=== PATIENT | male | born 1950 | race Caucasian/White ===

== ENCOUNTER 2019-05-25 20:41 | Inpatient (IN) | payer MEDICARE, OTHER ==
[2019-05-25] MEDS: SOD CHLORIDE 0.9% 500 ML IV (21:10)
[2019-05-25] MEDS: NITROGLYCERIN 2% 1 GM OINT PKT TD (21:10)
[2019-05-25] MEDS: ASPIRIN 325 MG TAB PO (21:10)
[2019-05-25 21:12] LABS: ADD MAN DIFF? NO
[2019-05-25 21:13] LABS: BASOPHILS % 0.3 % (0.0-2.0); EOSINOPHILS # 0.3 10^3/ul (0.0-0.5); EOSINOPHILS % 2.8 % (0.0-7.0); HEMATOCRIT 35.5 % (42.0-52.0); HEMOGLOBIN 11.7 g/dl (14.0-18.0); LYMPHOCYTES % 33.9 % (15.0-51.0); MEAN CORPUSCULAR HEMOGLOBIN 29.9 pg (29.0-33.0); MEAN CORPUSCULAR VOLUME 90.8 fl (82.0-101.0); MEAN PLATELET VOLUME 10.4 fl (7.4-10.4); MONOCYTE # 0.7 10^3/ul (0.3-0.9); NEUTROPHIL # 4.9 10^3/ul (1.6-7.5); NEUTROPHILS % 54.8 % (39.0-77.0); PLATELET COUNT 224 10^3/UL (140-415); RED BLOOD COUNT 3.91 10^6/ul (4.70-6.10); RED CELL DISTRIBUTION WIDTH 12.1 % (11.5-14.5)
[2019-05-25 21:13] LABS: WHITE BLOOD COUNT 8.9 10^3/ul (4.8-10.8)
[2019-05-25] MEDS: morphine 4 MG/ML VIAL IV (21:23)
[2019-05-25] MEDS: ONDANSETRON 4 MG INJ IV (21:23)
[2019-05-25 21:32] LABS: INR 0.91; PROTIME 12.4 Sec (11.9-14.9)
[2019-05-25 21:33] LABS: PARTIAL THROMBOPLASTIN TIME 25.1 Sec (23.0-35.0)
[2019-05-25 21:40] LABS: ALANINE AMINOTRANSFERASE 18 IU/L (13-69); ALBUMIN 3.8 g/dl (3.3-4.9); ALBUMIN/GLOBULIN RATIO 1.22; ALKALINE PHOSPHATASE 46 IU/L (42-121); ANION GAP 6 (5-13); ASPARTATE AMINO TRANSFERASE 24 IU/L (15-46); BILIRUBIN,INDIRECT 0.2 mg/dl (0-1.1); BILIRUBIN,TOTAL 0.2 mg/dl (0.2-1.3); BLOOD UREA NITROGEN 21 mg/dl (7-20); CALCIUM 8.9 mg/dl (8.4-10.2); CARBON DIOXIDE 25 mmol/L (21-31); CHLORIDE 106 mmol/L (97-110); CREATININE 1.27 mg/dl (0.61-1.24); Estimated GFR 57 mL/min (>60); GLUCOSE 184 mg/dl (70-220); POTASSIUM 4.1 mmol/L (3.5-5.1); SODIUM 137 mmol/L (135-144); TOTAL PROTEIN 6.9 g/dl (6.1-8.1)
[2019-05-25 21:52] LABS: TROPONIN-I 0.072 ng/ml (0.000-0.120)
[2019-05-25] MEDS ORDERED: ONDANSETRON 4 MG INJ IV ×2 (22:30→23:00)
[2019-05-25] MEDS ORDERED: ACETAMINOPHEN 325 MG TAB PO (22:30)
[2019-05-25] MEDS ORDERED: NACL 0.9% 3 ML SYG IV (23:00)
[2019-05-25] MEDS ORDERED: DOCUSATE SODIUM 100 MG CAP PO (23:00)
[2019-05-25] MEDS ORDERED: NITROGLYCERIN (SL) 0.4 MG TAB SL (23:00)
[2019-05-25] MEDS ORDERED: BISACODYL (EC) 5 MG TAB PO (23:00)
[2019-05-25] MEDS ORDERED: morphine 2 MG INJ IV (23:00)
[2019-05-26] MEDS: SALINE 0.65% 45 ML NAS SPRAY NASAL (03:00)
[2019-05-26 03:21] LABS: ADD MAN DIFF? NO
[2019-05-26 03:25] LABS: BASOPHILS % 0.5 % (0.0-2.0); EOSINOPHILS # 0.3 10^3/ul (0.0-0.5); EOSINOPHILS % 3.9 % (0.0-7.0); HEMATOCRIT 33.8 % (42.0-52.0); HEMOGLOBIN 10.7 g/dl (14.0-18.0); LYMPHOCYTES # 3.7 10^3/ul (0.8-2.9); LYMPHOCYTES % 44.3 % (15.0-51.0); MEAN CORPUSCULAR HEMOGLOBIN 29.2 pg (29.0-33.0); MEAN CORPUSCULAR HGB CONC 31.7 g/dl (32.0-37.0); MEAN CORPUSCULAR VOLUME 92.1 fl (82.0-101.0); MEAN PLATELET VOLUME 10.3 fl (7.4-10.4); MONOCYTE # 0.6 10^3/ul (0.3-0.9); MONOCYTES % 7.5 % (0.0-11.0); NEUTROPHIL # 3.7 10^3/ul (1.6-7.5); NEUTROPHILS % 43.6 % (39.0-77.0); PLATELET COUNT 205 10^3/UL (140-415); RED BLOOD COUNT 3.67 10^6/ul (4.70-6.10); RED CELL DISTRIBUTION WIDTH 12.1 % (11.5-14.5)
[2019-05-26 03:25] LABS: WHITE BLOOD COUNT 8.4 10^3/ul (4.8-10.8)
[2019-05-26 03:34] LABS: HEMOGLOBIN A1C 6.8 % (0-5.9)
[2019-05-26 03:51] LABS: ALANINE AMINOTRANSFERASE 23 IU/L (13-69); ALBUMIN 3.1 g/dl (3.3-4.9); ALBUMIN/GLOBULIN RATIO 1.19; ALKALINE PHOSPHATASE 46 IU/L (42-121); ANION GAP 4 (5-13); ASPARTATE AMINO TRANSFERASE 18 IU/L (15-46); BILIRUBIN,INDIRECT 0.3 mg/dl (0-1.1); BILIRUBIN,TOTAL 0.3 mg/dl (0.2-1.3); BLOOD UREA NITROGEN 18 mg/dl (7-20); CALCIUM 8.8 mg/dl (8.4-10.2); CARBON DIOXIDE 27 mmol/L (21-31); CHLORIDE 109 mmol/L (97-110); CHOLESTEROL 131 mg/dl (100-200); CREATININE 1.24 mg/dl (0.61-1.24); Estimated GFR 58 mL/min (>60); GLUCOSE 98 mg/dl (70-220); HDL CHOLESTEROL 26 mg/dl (30-78); LDL CHOLESTEROL,CALCULATED 85 mg/dl; MAGNESIUM 1.7 mg/dl (1.7-2.5); POTASSIUM 4.2 mmol/L (3.5-5.1); SODIUM 140 mmol/L (135-144); TOTAL PROTEIN 5.7 g/dl (6.1-8.1); TRIGLYCERIDES 101 mg/dl (0-149)
[2019-05-26 03:52] LABS: CREATINE KINASE 114 IU/L (23-200)
[2019-05-26 03:59] LABS: TROPONIN-I 0.086 ng/ml (0.000-0.120)
[2019-05-26] MEDS: FLUTICASONE 0.05% 16 GM NAS SPRAY NASAL ×2 (04:01→21:26)
[2019-05-26 04:03] LABS: CK INDEX 1.2; CK-MB 1.35 ng/ml (0.0-2.4)
[2019-05-26] MEDS: ASPIRIN 81 MG TAB PO (09:01)
[2019-05-26] MEDS ORDERED: DEXTROSE 50% 50 ML SYRINGE IV ×2 (10:00)
[2019-05-26] MEDS ORDERED: GLUCOSE GEL 15 GRAM TUBE BUCCAL (10:00)
[2019-05-26] MEDS ORDERED: GLUCAGON 1 MG INJ IM (10:00)
[2019-05-26] MEDS ORDERED: GLUCOSE GEL 15 GRAM TUBE PO ×2 (10:00)
[2019-05-26 10:55] LABS: CREATINE KINASE 92 IU/L (23-200)
[2019-05-26 11:09] LABS: CK INDEX 1.1; CK-MB 0.98 ng/ml (0.0-2.4); TROPONIN-I 0.046 ng/ml (0.000-0.120)
[2019-05-26] MEDS: INSULIN ASPART [NOVOLOG] 3 ML PEN SC ×3 (11:38→21:32)
[2019-05-26] MEDS: ATORVASTATIN 40 MG TAB PO (21:26)
[2019-05-26] MEDS: ACETAMINOPHEN 325 MG TAB PO (21:34)
[2019-05-27] MEDS: ACCU-CHEK XX (03:00)
[2019-05-27 05:45] LABS: ADD MAN DIFF? NO
[2019-05-27 05:54] LABS: WHITE BLOOD COUNT 9.2 10^3/ul (4.8-10.8)
[2019-05-27 05:54] LABS: BASOPHILS % 0.3 % (0.0-2.0); EOSINOPHILS # 0.4 10^3/ul (0.0-0.5); EOSINOPHILS % 3.8 % (0.0-7.0); HEMATOCRIT 35.6 % (42.0-52.0); HEMOGLOBIN 11.3 g/dl (14.0-18.0); LYMPHOCYTES # 3.7 10^3/ul (0.8-2.9); LYMPHOCYTES % 39.5 % (15.0-51.0); MEAN CORPUSCULAR HEMOGLOBIN 29.1 pg (29.0-33.0); MEAN CORPUSCULAR HGB CONC 31.7 g/dl (32.0-37.0); MEAN CORPUSCULAR VOLUME 91.8 fl (82.0-101.0); MEAN PLATELET VOLUME 10.5 fl (7.4-10.4); MONOCYTE # 0.7 10^3/ul (0.3-0.9); MONOCYTES % 7.6 % (0.0-11.0); NEUTROPHIL # 4.5 10^3/ul (1.6-7.5); NEUTROPHILS % 48.5 % (39.0-77.0); PLATELET COUNT 212 10^3/UL (140-415); RED BLOOD COUNT 3.88 10^6/ul (4.70-6.10); RED CELL DISTRIBUTION WIDTH 12.1 % (11.5-14.5)
[2019-05-27 06:29] LABS: ANION GAP 5 (5-13); BLOOD UREA NITROGEN 22 mg/dl (7-20); CALCIUM 8.9 mg/dl (8.4-10.2); CARBON DIOXIDE 28 mmol/L (21-31); CHLORIDE 105 mmol/L (97-110); CREATININE 1.21 mg/dl (0.61-1.24); Estimated GFR 60 mL/min (>60); GLUCOSE 134 mg/dl (70-220); MAGNESIUM 1.7 mg/dl (1.7-2.5); PHOSPHORUS 3.2 mg/dl (2.5-4.9); POTASSIUM 4.3 mmol/L (3.5-5.1); SODIUM 138 mmol/L (135-144)
[2019-05-27] MEDS: ASPIRIN 81 MG TAB PO (07:38)
[2019-05-27] MEDS: INSULIN ASPART [NOVOLOG] 3 ML PEN SC ×4 (07:38→21:00)
[2019-05-27] MEDS: FLUTICASONE 0.05% 16 GM NAS SPRAY NASAL ×2 (07:39→20:51)
[2019-05-27] MEDS: SOD CHLORIDE 0.9% 100 ML (08:31)
[2019-05-27] MEDS: IOHEXOL 350MG/ML 50 ML BTL ×2 (08:32)
[2019-05-27] MEDS: NITROGLYCERIN AEROSOL (4.9 GM) (09:40)
[2019-05-27] MEDS: METOPROLOL 5 MG INJ (10:08)
[2019-05-27] MEDS: ATORVASTATIN 40 MG TAB PO (20:51)
[2019-05-27] MEDS: ACETAMINOPHEN 325 MG TAB PO (20:55)
[2019-05-27] MEDS: DEXTROSE 5%-0.45% NACL 1,000 ML IV (23:58)
[2019-05-28 05:41] LABS: ALBUMIN 3.9 g/dl (3.3-4.9); ANION GAP 9 (5-13); BLOOD UREA NITROGEN 24 mg/dl (7-20); CALCIUM 9.2 mg/dl (8.4-10.2); CARBON DIOXIDE 24 mmol/L (21-31); CHLORIDE 105 mmol/L (97-110); CREATININE 1.17 mg/dl (0.61-1.24); GLUCOSE 158 mg/dl (70-220); MAGNESIUM 1.5 mg/dl (1.7-2.5); POTASSIUM 3.7 mmol/L (3.5-5.1); SODIUM 138 mmol/L (135-144)
[2019-05-28] MEDS: INSULIN ASPART [NOVOLOG] 3 ML PEN SC ×4 (08:00→21:00)
[2019-05-28] MEDS: FLUTICASONE 0.05% 16 GM NAS SPRAY NASAL ×2 (08:45→21:40)
[2019-05-28] MEDS: ASPIRIN 81 MG TAB PO (09:00)
[2019-05-28] MEDS: POTASSIUM CHLORIDE 20 MEQ POWDER FOR ORAL SOLN PO (10:18)
[2019-05-28] MEDS: MAGNESIUM SULFATE 2 GM/50 ML 50 ML IVPB (10:18)
[2019-05-28] MEDS ORDERED: LIDOCAINE 1% (MDV) 20 ML INJ (14:22)
[2019-05-28] MEDS ORDERED: FENTAnyl 50 MCG/ML VIAL (14:22)
[2019-05-28] MEDS ORDERED: MIDAZOLAM 1 MG/ML 2 ML INJ (14:23)
[2019-05-28] MEDS ORDERED: NITROGLYCERIN (IC) 100 MCG/ML INJ (14:24)
[2019-05-28] MEDS ORDERED: HEPARIN 1000 UNITS/ML 10 ML INJ (14:24)
[2019-05-28] MEDS ORDERED: VERAPAMIL 5 MG INJ (14:24)
[2019-05-28] MEDS ORDERED: IODIXANOL LOCM 100 ML BTL (14:33)
[2019-05-28] MEDS ORDERED: IOHEXOL 350MG/ML 50 ML BTL (14:39)
[2019-05-28] MEDS: ATORVASTATIN 40 MG TAB PO (21:40)
[2019-05-28] MEDS: ACETAMINOPHEN 325 MG TAB PO (22:08)
[2019-05-29 01:05] LABS: ADD UMIC NO; UR ASCORBIC ACID NEGATIVE (NEGATIVE); UR BILIRUBIN (Dip) NEGATIVE (NEGATIVE); UR BLOOD (Dip) NEGATIVE (NEGATIVE); UR CLARITY CLEAR (CLEAR); UR COLOR YELLOW (YELLOW); UR GLUCOSE (Dip) NEGATIVE (NEGATIVE); UR KETONES (Dip) NEGATIVE (NEGATIVE); UR LEUKOCYTE ESTERASE (Dip) NEGATIVE Leu/ul (NEGATIVE); UR NITRITE (Dip) NEGATIVE (NEGATIVE); UR SPECIFIC GRAVITY (Dip) 1.034 (1.003-1.030); UR TOTAL PROTEIN (Dip) NEGATIVE (NEGATIVE); UR UROBILINOGEN (Dip) NEGATIVE (NEGATIVE)
[2019-05-29] MEDS: DEXTROSE 5%-0.45% NACL 1,000 ML IV (01:18)
[2019-05-29] MEDS: INSULIN ASPART [NOVOLOG] 3 ML PEN SC ×4 (08:09→21:17)
[2019-05-29 08:42] LABS: ADD MAN DIFF? NO
[2019-05-29] MEDS: ASPIRIN 81 MG TAB PO (08:42)
[2019-05-29] MEDS: FLUTICASONE 0.05% 16 GM NAS SPRAY NASAL ×2 (08:42→21:05)
[2019-05-29 08:49] LABS: BASOPHILS % 0.4 % (0.0-2.0); EOSINOPHILS # 0.2 10^3/ul (0.0-0.5); EOSINOPHILS % 1.7 % (0.0-7.0); HEMATOCRIT 41.8 % (42.0-52.0); HEMOGLOBIN 13.4 g/dl (14.0-18.0); LYMPHOCYTES # 3.3 10^3/ul (0.8-2.9); LYMPHOCYTES % 31.1 % (15.0-51.0); MEAN CORPUSCULAR HEMOGLOBIN 28.6 pg (29.0-33.0); MEAN CORPUSCULAR HGB CONC 32.1 g/dl (32.0-37.0); MEAN CORPUSCULAR VOLUME 89.1 fl (82.0-101.0); MEAN PLATELET VOLUME 10.3 fl (7.4-10.4); MONOCYTE # 0.7 10^3/ul (0.3-0.9); MONOCYTES % 6.6 % (0.0-11.0); NEUTROPHIL # 6.4 10^3/ul (1.6-7.5); NEUTROPHILS % 59.7 % (39.0-77.0); PLATELET COUNT 262 10^3/UL (140-415); RED BLOOD COUNT 4.69 10^6/ul (4.70-6.10); RED CELL DISTRIBUTION WIDTH 12.1 % (11.5-14.5)
[2019-05-29 08:49] LABS: WHITE BLOOD COUNT 10.7 10^3/ul (4.8-10.8)
[2019-05-29 09:14] LABS: ALBUMIN 3.9 g/dl (3.3-4.9); ANION GAP 8 (5-13); BLOOD UREA NITROGEN 17 mg/dl (7-20); CALCIUM 9.6 mg/dl (8.4-10.2); CARBON DIOXIDE 27 mmol/L (21-31); CHLORIDE 102 mmol/L (97-110); CREATININE 1.11 mg/dl (0.61-1.24); GLUCOSE 163 mg/dl (70-220); MAGNESIUM 1.7 mg/dl (1.7-2.5); POTASSIUM 4.4 mmol/L (3.5-5.1); SODIUM 137 mmol/L (135-144)
[2019-05-29] MEDS: TAMSULOSIN (SR) 0.4 MG CAP PO (21:06)
[2019-05-29] MEDS: ATORVASTATIN 40 MG TAB PO (21:06)
[2019-05-29] MEDS ORDERED: CEFAZOLIN 2 GM/50 ML (PMX) 50 ML IVPB (22:00)
[2019-05-30] MEDS ORDERED: CEFAZOLIN 2 GM/50 ML (PMX) 50 ML IVPB (04:00)
[2019-05-30] MEDS ORDERED: THROMBIN 5000 UNIT (RECOTHROM) VIAL (06:15)
[2019-05-30] MEDS ORDERED: GELATIN SIZE 100 SPONGE (06:15)
[2019-05-30] MEDS ORDERED: HEPARIN 1000 UNITS/ML 10 ML INJ ×2 (06:15→08:15)
[2019-05-30 06:31] LABS: ALBUMIN 3.9 g/dl (3.3-4.9); ANION GAP 7 (5-13); BLOOD UREA NITROGEN 17 mg/dl (7-20); CALCIUM 9.2 mg/dl (8.4-10.2); CARBON DIOXIDE 25 mmol/L (21-31); CHLORIDE 105 mmol/L (97-110); CREATININE 1.11 mg/dl (0.61-1.24); GLUCOSE 164 mg/dl (70-220); MAGNESIUM 1.5 mg/dl (1.7-2.5); PHOSPHORUS 3.2 mg/dl (2.5-4.9); POTASSIUM 3.9 mmol/L (3.5-5.1); SODIUM 137 mmol/L (135-144)
[2019-05-30] MEDS: INSULIN HUMAN REGULAR 100 UNIT in SOD CHLORIDE 0.9% 99 ML IVPB (07:00)
[2019-05-30] MEDS: NORepinephrine 8MG/250 ML (PMX 250 ML IV (07:00)
[2019-05-30] MEDS: HEPARIN (10000 UNITS/ML) 10,000 UNIT, MILRINONE LACTATE 10 MG in SOD CHLORIDE 0.9% 1,00... SC (07:00)
[2019-05-30] MEDS: ASPIRIN 600 MG SUPP PR (07:00)
[2019-05-30] MEDS: EPINEPHrine 4 MG in DEXTROSE 5% 246 ML IV (07:00)
[2019-05-30] MEDS ORDERED: PHENYLephrine 20MG IN 250 ML 250 ML IV ×2 (07:00→11:30)
[2019-05-30] MEDS ORDERED: DOPamine-D5W 1.6 MG/ML 250 ML (07:15)
[2019-05-30] MEDS ORDERED: ISOFLURANE 15 MIN (07:15)
[2019-05-30] MEDS ORDERED: NITROGLYCERIN 50 MG/D5W 250 ML BTL (07:15)
[2019-05-30] MEDS ORDERED: MIDAZOLAM 5 ML (07:16)
[2019-05-30] MEDS ORDERED: NA BICARBONATE 8.4% 50 ML SYG (07:28)
[2019-05-30] MEDS ORDERED: PHENYLephrine 10 MG INJ (07:28)
[2019-05-30] MEDS ORDERED: MAGNESIUM SULFATE (MG) 50% 10 ML INJ (07:28)
[2019-05-30] MEDS ORDERED: POTASSIUM CHLORIDE 40 MEQ INJ (07:28)
[2019-05-30] MEDS ORDERED: LIDOCAINE 100 MG SYRINGE (07:28)
[2019-05-30] MEDS ORDERED: CEFAZOLIN 1 GM INJ (08:00)
[2019-05-30] MEDS: VANCOMYCIN 1 GM INJ (08:32)
[2019-05-30] MEDS: PAPAVERINE 60 MG INJ (08:32)
[2019-05-30] MEDS: HEPARIN 1000 UNITS/ML 10 ML INJ (08:33)
[2019-05-30] MEDS ORDERED: PROTAMINE 250 MG INJ (10:14)
[2019-05-30] MEDS ORDERED: LIDOCAINE 2% (SDV) 5 ML INJ (10:38)
[2019-05-30] MEDS ORDERED: ROCURONIUM 50 MG INJ (10:38)
[2019-05-30] MEDS ORDERED: ETOMIDATE 20 MG INJ (10:38)
[2019-05-30] MEDS ORDERED: DOPamine-D5W 1.6 MG/ML 250 ML IV (11:00)
[2019-05-30] MEDS ORDERED: DEXTROSE 50% 50 ML SYRINGE IV ×2 (11:00)
[2019-05-30] MEDS: ACCU-CHEK XX ×14 (11:00→23:56)
[2019-05-30] MEDS ORDERED: ONDANSETRON 4 MG INJ IV ×2 (11:00→11:30)
[2019-05-30] MEDS ORDERED: DIPHENHYDRAMINE 50 MG INJ IV (11:30)
[2019-05-30] MEDS ORDERED: METOCLOPRAMIDE 10 MG INJ IV (11:30)
[2019-05-30] MEDS ORDERED: MEPERIDINE 25 MG INJ IV (11:30)
[2019-05-30] MEDS ORDERED: morphine 2 MG INJ IV (11:30)
[2019-05-30] MEDS ORDERED: NITROGLYCERIN 50 MG/D5W (PMX) 250 ML IV (11:30)
[2019-05-30] MEDS ORDERED: FENTAnyl 50 MCG/ML VIAL IV ×2 (11:30)
[2019-05-30 11:33] LABS: ADD MAN DIFF? NO
[2019-05-30 11:35] LABS: WHITE BLOOD COUNT 11.4 10^3/ul (4.8-10.8)
[2019-05-30 11:35] LABS: BASOPHILS % 0.3 % (0.0-2.0); EOSINOPHILS # 0.2 10^3/ul (0.0-0.5); EOSINOPHILS % 1.5 % (0.0-7.0); HEMATOCRIT 30.6 % (42.0-52.0); LYMPHOCYTES # 2.6 10^3/ul (0.8-2.9); LYMPHOCYTES % 22.6 % (15.0-51.0); MEAN CORPUSCULAR HEMOGLOBIN 29.2 pg (29.0-33.0); MEAN CORPUSCULAR HGB CONC 32.7 g/dl (32.0-37.0); MEAN CORPUSCULAR VOLUME 89.5 fl (82.0-101.0); MEAN PLATELET VOLUME 10.1 fl (7.4-10.4); MONOCYTE # 0.9 10^3/ul (0.3-0.9); MONOCYTES % 7.9 % (0.0-11.0); NEUTROPHIL # 7.6 10^3/ul (1.6-7.5); NEUTROPHILS % 67.1 % (39.0-77.0); PLATELET COUNT 191 10^3/UL (140-415); RED BLOOD COUNT 3.42 10^6/ul (4.70-6.10); RED CELL DISTRIBUTION WIDTH 12.3 % (11.5-14.5)
[2019-05-30] MEDS ORDERED: MAGNESIUM SULFATE 2 GM/50 ML (11:35)
[2019-05-30] MEDS: MAGNESIUM SULFATE 2 GM/50 ML 50 ML IVPB ×2 (11:49→13:46)
[2019-05-30 11:54] LABS: ANION GAP 7 (5-13); BLOOD UREA NITROGEN 14 mg/dl (7-20); CALCIUM 7.7 mg/dl (8.4-10.2); CARBON DIOXIDE 21 mmol/L (21-31); CHLORIDE 109 mmol/L (97-110); CREATININE 1.03 mg/dl (0.61-1.24); Estimated GFR > 60 mL/min (>60); GLUCOSE 133 mg/dl (70-220); MAGNESIUM 1.3 mg/dl (1.7-2.5); POTASSIUM 3.7 mmol/L (3.5-5.1); SODIUM 137 mmol/L (135-144)
[2019-05-30 11:55] LABS: INR 1.16; PROTIME 14.9 Sec (11.9-14.9); PT RATIO 1.2
[2019-05-30 11:56] LABS: PARTIAL THROMBOPLASTIN TIME 28.1 Sec (23.0-35.0)
[2019-05-30] MEDS: PHENYLephrine 20MG IN 250 ML 250 ML IV (12:02)
[2019-05-30] MEDS: MILRINONE LACTATE 2 MG in SOD CHLORIDE 0.9% 50 ML IV (12:13)
[2019-05-30 12:17] LABS: Arterial Base Excess -4.3 mmol/L (-3.0-3); Arterial Blood Gas Oxygen Sat 98.7 mmHG (95.0-98.0); Arterial COHb 0.2 % (0.0-3.0); Arterial Fraction of Oxyhgb 98.1 % (93.0-99.0); Arterial HCO3 21.8 mmol/L (22.0-26.0); Arterial MetHb 0.4 % (0.0-1.5); Arterial pCO2 43.6 mmhg (35-45); MODE VENT - AC; Site A-Line
[2019-05-30 12:24] LABS: MODE VENT - AC; MetHgb Mixed Venous 0.4 %; Mixed Venous COHb 0.3 %; Mixed Venous Fraction OxyHgb 78.1 %; Mixed Venous Oxygen Sat 78.7 mmHG (65.0-75.0); Mixed Venous Total Hemglobin 11.5 g/dl; Sample Type BLMV; Site OTHER
[2019-05-30] MEDS: CEFAZOLIN 1 GM/50 ML (PMX) 50 ML IVPB ×2 (12:37→19:37)
[2019-05-30] MEDS: morphine 2 MG INJ IV ×3 (12:51→13:12)
[2019-05-30] MEDS: POTASSIUM CHLORIDE 40 MEQ, CALCIUM CHLORIDE 10% 1 GM in DEXTROSE 5%-0.225% NACL 1,000 ML IV (13:29)
[2019-05-30] MEDS: INSULIN HUMAN REGULAR 100 UNIT in SOD CHLORIDE 0.9% 99 ML IV (15:20)
[2019-05-30] MEDS: ALBUMIN HUMAN 5% 250 ML IV ×2 (16:52→17:51)
[2019-05-30] MEDS ORDERED: ACETAMINOPHEN 1000MG/100ML IV 100 ML IVPB (17:00)
[2019-05-30] MEDS: ACETAMINOPHEN 1000MG/100ML IV 100 ML IVPB (17:15)
[2019-05-30] MEDS: HYDROmorphONE 0.5 MG/0.5 ML SYG IV ×3 (18:23→22:09)
[2019-05-30] MEDS: ATORVASTATIN 40 MG TAB PO (20:06)
[2019-05-30] MEDS: FAMOTIDINE 20 MG TAB PO (20:06)
[2019-05-30 20:10] LABS: ANION GAP 5 (5-13); BLOOD UREA NITROGEN 15 mg/dl (7-20); CALCIUM 7.9 mg/dl (8.4-10.2); CARBON DIOXIDE 21 mmol/L (21-31); CHLORIDE 109 mmol/L (97-110); CREATININE 1.08 mg/dl (0.61-1.24); Estimated GFR > 60 mL/min (>60); GLUCOSE 162 mg/dl (70-220); POTASSIUM 4.4 mmol/L (3.5-5.1); SODIUM 135 mmol/L (135-144)
[2019-05-30] MEDS: FAMOTIDINE 20 MG INJ IV (20:14)
[2019-05-30 20:43] LABS: MAGNESIUM 2.1 mg/dl (1.7-2.5)
[2019-05-30] MEDS: POTASSIUM CHLORIDE 50 ML IVPB (20:46)
[2019-05-30 22:08] LABS: AADO2 Arterial 116.5 mmHg (7.0-24.0); Arterial Base Excess -5.1 mmol/L (-3.0-3); Arterial Blood Gas Oxygen Sat 98.1 mmHG (95.0-98.0); Arterial COHb 0.3 % (0.0-3.0); Arterial Fraction of Oxyhgb 97.4 % (93.0-99.0); Arterial HCO3 19.7 mmol/L (22.0-26.0); Arterial MetHb 0.4 % (0.0-1.5); Arterial pCO2 35.7 mmhg (35-45); Blood Gas Low PEEP Setting 0 cmH2O; MODE VENT - CPAP; Site A-Line
[2019-05-30] MEDS: OXYCODONE/ACETAMINOPHEN (5/325) TAB PO (23:10)
[2019-05-30] MEDS: NITROGLYCERIN 50 MG/D5W (PMX) 250 ML IV (23:50)
[2019-05-31] MEDS: ACCU-CHEK XX ×9 (01:00→08:14)
[2019-05-31] MEDS: CEFAZOLIN 1 GM/50 ML (PMX) 50 ML IVPB (02:54)
[2019-05-31] MEDS: OXYCODONE/ACETAMINOPHEN (5/325) TAB PO ×4 (03:27→18:59)
[2019-05-31] MEDS: POTASSIUM CHLORIDE 40 MEQ, CALCIUM CHLORIDE 10% 1 GM in DEXTROSE 5%-0.225% NACL 1,000 ML IV (04:03)
[2019-05-31 05:01] LABS: ADD MAN DIFF? NO
[2019-05-31 05:03] LABS: WHITE BLOOD COUNT 11.5 10^3/ul (4.8-10.8)
[2019-05-31 05:03] LABS: BASOPHILS % 0.2 % (0.0-2.0); EOSINOPHILS % 0.2 % (0.0-7.0); HEMATOCRIT 31.2 % (42.0-52.0); HEMOGLOBIN 10.1 g/dl (14.0-18.0); LYMPHOCYTES # 2.3 10^3/ul (0.8-2.9); LYMPHOCYTES % 20.2 % (15.0-51.0); MEAN CORPUSCULAR HEMOGLOBIN 29.5 pg (29.0-33.0); MEAN CORPUSCULAR HGB CONC 32.4 g/dl (32.0-37.0); MEAN CORPUSCULAR VOLUME 91.2 fl (82.0-101.0); MEAN PLATELET VOLUME 10.3 fl (7.4-10.4); MONOCYTE # 1.1 10^3/ul (0.3-0.9); MONOCYTES % 9.7 % (0.0-11.0); NEUTROPHILS % 69.3 % (39.0-77.0); PLATELET COUNT 196 10^3/UL (140-415); RED BLOOD COUNT 3.42 10^6/ul (4.70-6.10); RED CELL DISTRIBUTION WIDTH 12.3 % (11.5-14.5)
[2019-05-31 05:09] LABS: AADO2 Mixed Venous 111.1 mmHg; MODE NASAL CANNULA; MetHgb Mixed Venous 0.3 %; Mixed Venous Base Excess -2.5 mmol/L; Mixed Venous COHb 0.1 %; Mixed Venous Fraction OxyHgb 63.9 %; Mixed Venous Oxygen Sat 64.2 mmHG (65.0-75.0); Mixed Venous Total Hemglobin 11.8 g/dl; Sample Type BLMV; Site PUL ART LINE
[2019-05-31 05:13] LABS: AADO2 Arterial 68.7 mmHg (7.0-24.0); Arterial Base Excess -3.3 mmol/L (-3.0-3); Arterial Blood Gas Oxygen Sat 96.1 mmHG (95.0-98.0); Arterial COHb 0.1 % (0.0-3.0); Arterial Fraction of Oxyhgb 95.7 % (93.0-99.0); Arterial HCO3 21.4 mmol/L (22.0-26.0); Arterial MetHb 0.3 % (0.0-1.5); Arterial pCO2 37.2 mmhg (35-45); MODE NASAL CANNULA; Site A-Line
[2019-05-31 05:23] LABS: INR 1.12; PROTIME 14.5 Sec (11.9-14.9); PT RATIO 1.1
[2019-05-31 05:36] LABS: ANION GAP 5 (5-13); BLOOD UREA NITROGEN 13 mg/dl (7-20); CALCIUM 8.3 mg/dl (8.4-10.2); CARBON DIOXIDE 24 mmol/L (21-31); CHLORIDE 106 mmol/L (97-110); CREATININE 1.04 mg/dl (0.61-1.24); Estimated GFR > 60 mL/min (>60); GLUCOSE 133 mg/dl (70-220); POTASSIUM 4.4 mmol/L (3.5-5.1); SODIUM 135 mmol/L (135-144)
[2019-05-31 05:59] LABS: MAGNESIUM 1.9 mg/dl (1.7-2.5)
[2019-05-31] MEDS: MAGNESIUM SULFATE 1 GM/D5W 100 ML IVPB ×2 (06:07→07:40)
[2019-05-31] MEDS: ASPIRIN 325 MG TAB PO (08:13)
[2019-05-31] MEDS: FAMOTIDINE 20 MG TAB PO ×2 (08:13→21:07)
[2019-05-31] MEDS: ENOXAPARIN 40 MG/0.4 ML SYG SC (08:14)
[2019-05-31] MEDS: POTASSIUM CHLORIDE 50 ML IVPB (08:51)
[2019-05-31] MEDS: METOPROLOL 25 MG TAB PO ×2 (09:46→21:08)
[2019-05-31] MEDS ORDERED: GLUCAGON 1 MG INJ IM (10:00)
[2019-05-31] MEDS ORDERED: DEXTROSE 50% 50 ML SYRINGE IV ×2 (10:00)
[2019-05-31] MEDS ORDERED: GLUCOSE GEL 15 GRAM TUBE PO ×2 (10:00)
[2019-05-31] MEDS ORDERED: GLUCOSE GEL 15 GRAM TUBE BUCCAL (10:00)
[2019-05-31 11:12] LABS: HEMATOCRIT 33.4 % (42.0-52.0)
[2019-05-31] MEDS: INSULIN GLARGINE [LANTus] (100 UNITS/ML) SYG SC (11:13)
[2019-05-31] MEDS: KETOROLAC 15 MG INJ IV ×2 (11:22→22:46)
[2019-05-31] MEDS: INSULIN ASPART [NOVOLOG] 3 ML PEN SC ×3 (11:25→21:00)
[2019-05-31] MEDS: ACETAMINOPHEN 325 MG TAB PO (15:18)
[2019-05-31] MEDS: SOD CHLORIDE 0.9% 500 ML IV (15:44)
[2019-05-31] MEDS: morphine 2 MG INJ IV (17:03)
[2019-05-31] MEDS: TAMSULOSIN (SR) 0.4 MG CAP PO (21:08)
[2019-05-31] MEDS: ATORVASTATIN 40 MG TAB PO (21:08)
[2019-06-01 06:20] LABS: ADD MAN DIFF? NO
[2019-06-01 06:30] LABS: BASOPHILS % 0.3 % (0.0-2.0); EOSINOPHILS # 0.1 10^3/ul (0.0-0.5); EOSINOPHILS % 0.9 % (0.0-7.0); HEMATOCRIT 31.9 % (42.0-52.0); HEMOGLOBIN 10.2 g/dl (14.0-18.0); LYMPHOCYTES # 1.6 10^3/ul (0.8-2.9); LYMPHOCYTES % 15.8 % (15.0-51.0); MEAN CORPUSCULAR HEMOGLOBIN 28.7 pg (29.0-33.0); MEAN CORPUSCULAR VOLUME 89.9 fl (82.0-101.0); MONOCYTE # 0.9 10^3/ul (0.3-0.9); MONOCYTES % 8.8 % (0.0-11.0); NEUTROPHIL # 7.7 10^3/ul (1.6-7.5); NEUTROPHILS % 73.7 % (39.0-77.0); PLATELET COUNT 170 10^3/UL (140-415); RED BLOOD COUNT 3.55 10^6/ul (4.70-6.10); RED CELL DISTRIBUTION WIDTH 12.4 % (11.5-14.5)
[2019-06-01 06:30] LABS: WHITE BLOOD COUNT 10.4 10^3/ul (4.8-10.8)
[2019-06-01 06:36] LABS: ANION GAP 4 (5-13); BLOOD UREA NITROGEN 17 mg/dl (7-20); CALCIUM 8.4 mg/dl (8.4-10.2); CARBON DIOXIDE 25 mmol/L (21-31); CHLORIDE 104 mmol/L (97-110); CREATININE 1.18 mg/dl (0.61-1.24); Estimated GFR > 60 mL/min (>60); GLUCOSE 156 mg/dl (70-220); POTASSIUM 4.4 mmol/L (3.5-5.1); SODIUM 133 mmol/L (135-144)
[2019-06-01] MEDS: INSULIN ASPART [NOVOLOG] 3 ML PEN SC ×4 (07:54→20:42)
[2019-06-01] MEDS: FAMOTIDINE 20 MG TAB PO ×2 (08:37→20:37)
[2019-06-01] MEDS: METOPROLOL 25 MG TAB PO ×2 (08:38→20:37)
[2019-06-01] MEDS: ASPIRIN 325 MG TAB PO (08:38)
[2019-06-01] MEDS: OXYCODONE/ACETAMINOPHEN (5/325) TAB PO ×2 (08:38→22:11)
[2019-06-01] MEDS: ENOXAPARIN 40 MG/0.4 ML SYG SC (10:06)
[2019-06-01] MEDS: INSULIN GLARGINE [LANTus] (100 UNITS/ML) SYG SC (10:42)
[2019-06-01] MEDS: DOCUSATE SODIUM 250 MG CAP PO (13:30)
[2019-06-01] MEDS: LACTULOSE 30ML CUP PO (13:31)
[2019-06-01] MEDS: ACETAMINOPHEN 325 MG TAB PO (17:28)
[2019-06-01] MEDS: TAMSULOSIN (SR) 0.4 MG CAP PO (20:37)
[2019-06-01] MEDS: ATORVASTATIN 40 MG TAB PO (20:37)
[2019-06-02 06:21] LABS: ADD MAN DIFF? NO
[2019-06-02 06:31] LABS: BASOPHILS % 0.2 % (0.0-2.0); EOSINOPHILS # 0.2 10^3/ul (0.0-0.5); EOSINOPHILS % 1.8 % (0.0-7.0); HEMATOCRIT 33.2 % (42.0-52.0); LYMPHOCYTES # 1.9 10^3/ul (0.8-2.9); LYMPHOCYTES % 19.1 % (15.0-51.0); MEAN CORPUSCULAR HEMOGLOBIN 29.5 pg (29.0-33.0); MEAN CORPUSCULAR HGB CONC 33.1 g/dl (32.0-37.0); MEAN PLATELET VOLUME 10.2 fl (7.4-10.4); MONOCYTE # 0.9 10^3/ul (0.3-0.9); MONOCYTES % 8.9 % (0.0-11.0); NEUTROPHIL # 6.8 10^3/ul (1.6-7.5); NEUTROPHILS % 69.4 % (39.0-77.0); PLATELET COUNT 204 10^3/UL (140-415); RED BLOOD COUNT 3.73 10^6/ul (4.70-6.10); RED CELL DISTRIBUTION WIDTH 12.1 % (11.5-14.5)
[2019-06-02 06:31] LABS: WHITE BLOOD COUNT 9.8 10^3/ul (4.8-10.8)
[2019-06-02 06:59] LABS: ANION GAP 8 (5-13); BLOOD UREA NITROGEN 16 mg/dl (7-20); CALCIUM 8.8 mg/dl (8.4-10.2); CARBON DIOXIDE 25 mmol/L (21-31); CHLORIDE 101 mmol/L (97-110); CREATININE 1.02 mg/dl (0.61-1.24); Estimated GFR > 60 mL/min (>60); GLUCOSE 186 mg/dl (70-220); SODIUM 134 mmol/L (135-144)
[2019-06-02] MEDS: INSULIN ASPART [NOVOLOG] 3 ML PEN SC ×4 (08:26→21:14)
[2019-06-02] MEDS: INSULIN GLARGINE [LANTus] (100 UNITS/ML) SYG SC (08:26)
[2019-06-02] MEDS: DOCUSATE SODIUM 250 MG CAP PO (08:38)
[2019-06-02] MEDS: ASPIRIN 325 MG TAB PO (08:38)
[2019-06-02] MEDS: METOPROLOL 25 MG TAB PO ×2 (08:39→21:06)
[2019-06-02] MEDS: FAMOTIDINE 20 MG TAB PO ×2 (08:39→21:06)
[2019-06-02] MEDS: LOSARTAN 50 MG TAB PO (08:39)
[2019-06-02] MEDS: OXYCODONE/ACETAMINOPHEN (5/325) TAB PO ×2 (08:40→22:30)
[2019-06-02] MEDS: ENOXAPARIN 40 MG/0.4 ML SYG SC (09:59)
[2019-06-02 15:39] LABS: ADD UMIC YES; UR ASCORBIC ACID NEGATIVE (NEGATIVE); UR BILIRUBIN (Dip) NEGATIVE (NEGATIVE); UR BLOOD (Dip) 1+ mg/dL (NEGATIVE); UR CLARITY CLEAR (CLEAR); UR COLOR YELLOW (YELLOW); UR GLUCOSE (Dip) 1+ mg/dL (NEGATIVE); UR KETONES (Dip) NEGATIVE (NEGATIVE); UR LEUKOCYTE ESTERASE (Dip) NEGATIVE Leu/ul (NEGATIVE); UR NITRITE (Dip) NEGATIVE (NEGATIVE); UR RBC 12 /HPF (0-5); UR SPECIFIC GRAVITY (Dip) 1.016 (1.003-1.030); UR TOTAL PROTEIN (Dip) 1+ mg/dl (NEGATIVE); UR UROBILINOGEN (Dip) NEGATIVE (NEGATIVE); UR WBC 1 /HPF (0-5)
[2019-06-02] MEDS: metFORMIN 500 MG TAB PO (18:33)
[2019-06-02] MEDS: PHENAZOPYRIDINE 100 MG TAB PO (21:05)
[2019-06-02] MEDS: TAMSULOSIN (SR) 0.4 MG CAP PO (21:06)
[2019-06-02] MEDS: ATORVASTATIN 40 MG TAB PO (21:06)
[2019-06-03 05:40] LABS: ADD MAN DIFF? NO
[2019-06-03 05:43] LABS: WHITE BLOOD COUNT 10.4 10^3/ul (4.8-10.8)
[2019-06-03 05:43] LABS: BASOPHILS % 0.3 % (0.0-2.0); EOSINOPHILS # 0.5 10^3/ul (0.0-0.5); EOSINOPHILS % 4.3 % (0.0-7.0); HEMATOCRIT 34.3 % (42.0-52.0); HEMOGLOBIN 11.2 g/dl (14.0-18.0); LYMPHOCYTES # 2.4 10^3/ul (0.8-2.9); MEAN CORPUSCULAR HEMOGLOBIN 28.9 pg (29.0-33.0); MEAN CORPUSCULAR HGB CONC 32.7 g/dl (32.0-37.0); MEAN CORPUSCULAR VOLUME 88.4 fl (82.0-101.0); MEAN PLATELET VOLUME 10.3 fl (7.4-10.4); MONOCYTES % 9.5 % (0.0-11.0); NEUTROPHIL # 6.5 10^3/ul (1.6-7.5); NEUTROPHILS % 62.3 % (39.0-77.0); PLATELET COUNT 232 10^3/UL (140-415); RED BLOOD COUNT 3.88 10^6/ul (4.70-6.10); RED CELL DISTRIBUTION WIDTH 12.3 % (11.5-14.5)
[2019-06-03 06:10] LABS: ANION GAP 8 (5-13); BLOOD UREA NITROGEN 19 mg/dl (7-20); CARBON DIOXIDE 25 mmol/L (21-31); CHLORIDE 102 mmol/L (97-110); CREATININE 1.02 mg/dl (0.61-1.24); Estimated GFR > 60 mL/min (>60); GLUCOSE 172 mg/dl (70-220); POTASSIUM 3.9 mmol/L (3.5-5.1); SODIUM 135 mmol/L (135-144)
[2019-06-03 07:16] LABS: MAGNESIUM 1.6 mg/dl (1.7-2.5)
[2019-06-03] MEDS: metFORMIN 500 MG TAB PO ×2 (08:01→17:19)
[2019-06-03] MEDS: INSULIN ASPART [NOVOLOG] 3 ML PEN SC ×4 (08:09→20:59)
[2019-06-03] MEDS: INSULIN GLARGINE [LANTus] (100 UNITS/ML) SYG SC (08:10)
[2019-06-03] MEDS: ASPIRIN 325 MG TAB PO (09:09)
[2019-06-03] MEDS: DOCUSATE SODIUM 250 MG CAP PO (09:11)
[2019-06-03] MEDS: FAMOTIDINE 20 MG TAB PO ×2 (09:11→20:59)
[2019-06-03] MEDS: LOSARTAN 50 MG TAB PO (09:12)
[2019-06-03] MEDS: METOPROLOL 25 MG TAB PO ×2 (09:12→20:59)
[2019-06-03] MEDS: ENOXAPARIN 40 MG/0.4 ML SYG SC (09:16)
[2019-06-03] MEDS: LIDOCAINE 2% 20 ML UROJET SYRINGE MM (14:22)
[2019-06-03] MEDS: MAGNESIUM SULFATE 2 GM/50 ML 50 ML IVPB (14:27)
[2019-06-03] MEDS: ATORVASTATIN 40 MG TAB PO (20:58)
[2019-06-03] MEDS: TAMSULOSIN (SR) 0.4 MG CAP PO (20:58)
[2019-06-04 06:06] LABS: ADD MAN DIFF? NO
[2019-06-04 06:08] LABS: BASOPHILS % 0.4 % (0.0-2.0); EOSINOPHILS # 0.4 10^3/ul (0.0-0.5); EOSINOPHILS % 3.9 % (0.0-7.0); HEMATOCRIT 33.3 % (42.0-52.0); HEMOGLOBIN 10.9 g/dl (14.0-18.0); LYMPHOCYTES # 2.7 10^3/ul (0.8-2.9); LYMPHOCYTES % 27.2 % (15.0-51.0); MEAN CORPUSCULAR HEMOGLOBIN 29.5 pg (29.0-33.0); MEAN CORPUSCULAR HGB CONC 32.7 g/dl (32.0-37.0); MEAN PLATELET VOLUME 10.4 fl (7.4-10.4); MONOCYTE # 0.8 10^3/ul (0.3-0.9); MONOCYTES % 8.6 % (0.0-11.0); NEUTROPHIL # 5.8 10^3/ul (1.6-7.5); NEUTROPHILS % 59.5 % (39.0-77.0); PLATELET COUNT 259 10^3/UL (140-415); RED CELL DISTRIBUTION WIDTH 12.1 % (11.5-14.5)
[2019-06-04 06:08] LABS: WHITE BLOOD COUNT 9.8 10^3/ul (4.8-10.8)
[2019-06-04 06:35] LABS: ANION GAP 9 (5-13); BLOOD UREA NITROGEN 21 mg/dl (7-20); CARBON DIOXIDE 26 mmol/L (21-31); CHLORIDE 100 mmol/L (97-110); CREATININE 1.02 mg/dl (0.61-1.24); Estimated GFR > 60 mL/min (>60); GLUCOSE 142 mg/dl (70-220); POTASSIUM 4.1 mmol/L (3.5-5.1); SODIUM 135 mmol/L (135-144)
[2019-06-04 06:39] LABS: MAGNESIUM 2.5 mg/dl (1.7-2.5)
[2019-06-04] MEDS: metFORMIN 500 MG TAB PO ×2 (08:50→17:12)
[2019-06-04] MEDS: TAMSULOSIN (SR) 0.4 MG CAP PO ×2 (08:50→21:01)
[2019-06-04] MEDS: ASPIRIN 325 MG TAB PO (08:50)
[2019-06-04] MEDS: FAMOTIDINE 20 MG TAB PO ×2 (08:50→21:01)
[2019-06-04] MEDS: LOSARTAN 50 MG TAB PO (08:51)
[2019-06-04] MEDS: METOPROLOL 25 MG TAB PO ×2 (08:51→21:02)
[2019-06-04] MEDS: DOCUSATE SODIUM 250 MG CAP PO (08:52)
[2019-06-04] MEDS: INSULIN ASPART [NOVOLOG] 3 ML PEN SC ×4 (09:02→21:00)
[2019-06-04] MEDS: INSULIN GLARGINE [LANTus] (100 UNITS/ML) SYG SC (09:02)
[2019-06-04] MEDS: ENOXAPARIN 40 MG/0.4 ML SYG SC (09:02)
[2019-06-04] MEDS: ATORVASTATIN 40 MG TAB PO (21:01)
[2019-06-05 06:04] LABS: ADD MAN DIFF? NO
[2019-06-05 06:06] LABS: WHITE BLOOD COUNT 10.9 10^3/ul (4.8-10.8)
[2019-06-05 06:07] LABS: BASOPHIL # 0.1 10^3/ul (0.0-0.1); BASOPHILS % 0.6 % (0.0-2.0); EOSINOPHILS # 0.4 10^3/ul (0.0-0.5); EOSINOPHILS % 3.5 % (0.0-7.0); HEMATOCRIT 34.8 % (42.0-52.0); HEMOGLOBIN 11.4 g/dl (14.0-18.0); LYMPHOCYTES # 3.1 10^3/ul (0.8-2.9); MEAN CORPUSCULAR HEMOGLOBIN 28.9 pg (29.0-33.0); MEAN CORPUSCULAR HGB CONC 32.8 g/dl (32.0-37.0); MEAN CORPUSCULAR VOLUME 88.3 fl (82.0-101.0); MONOCYTES % 9.5 % (0.0-11.0); NEUTROPHIL # 6.3 10^3/ul (1.6-7.5); NEUTROPHILS % 57.8 % (39.0-77.0); PLATELET COUNT 299 10^3/UL (140-415); RED BLOOD COUNT 3.94 10^6/ul (4.70-6.10)
[2019-06-05 06:35] LABS: MAGNESIUM 1.8 mg/dl (1.7-2.5)
[2019-06-05 06:39] LABS: ANION GAP 9 (5-13); BLOOD UREA NITROGEN 24 mg/dl (7-20); CALCIUM 9.3 mg/dl (8.4-10.2); CARBON DIOXIDE 24 mmol/L (21-31); CHLORIDE 102 mmol/L (97-110); CREATININE 1.13 mg/dl (0.61-1.24); Estimated GFR > 60 mL/min (>60); GLUCOSE 120 mg/dl (70-220); POTASSIUM 4.3 mmol/L (3.5-5.1); SODIUM 135 mmol/L (135-144)
[2019-06-05] MEDS: INSULIN ASPART [NOVOLOG] 3 ML PEN SC ×4 (08:00→20:44)
[2019-06-05] MEDS: DOCUSATE SODIUM 250 MG CAP PO (08:41)
[2019-06-05] MEDS: ASPIRIN 325 MG TAB PO (08:41)
[2019-06-05] MEDS: TAMSULOSIN (SR) 0.4 MG CAP PO ×2 (08:41→20:38)
[2019-06-05] MEDS: FAMOTIDINE 20 MG TAB PO ×2 (08:41→20:37)
[2019-06-05] MEDS: LOSARTAN 25 MG TAB PO (08:42)
[2019-06-05] MEDS: metFORMIN 500 MG TAB PO ×2 (08:43→18:36)
[2019-06-05] MEDS: METOPROLOL 25 MG TAB PO ×2 (08:43→20:38)
[2019-06-05] MEDS: INSULIN GLARGINE [LANTus] (100 UNITS/ML) SYG SC (08:52)
[2019-06-05] MEDS: ENOXAPARIN 40 MG/0.4 ML SYG SC (08:52)
[2019-06-05] MEDS: ATORVASTATIN 40 MG TAB PO (20:37)
[2019-06-06 05:13] LABS: ADD MAN DIFF? NO
[2019-06-06 05:16] LABS: BASOPHILS % 0.3 % (0.0-2.0); EOSINOPHILS # 0.4 10^3/ul (0.0-0.5); EOSINOPHILS % 3.7 % (0.0-7.0); HEMATOCRIT 34.5 % (42.0-52.0); HEMOGLOBIN 11.1 g/dl (14.0-18.0); LYMPHOCYTES # 2.8 10^3/ul (0.8-2.9); LYMPHOCYTES % 24.3 % (15.0-51.0); MEAN CORPUSCULAR HEMOGLOBIN 28.5 pg (29.0-33.0); MEAN CORPUSCULAR HGB CONC 32.2 g/dl (32.0-37.0); MEAN CORPUSCULAR VOLUME 88.7 fl (82.0-101.0); MEAN PLATELET VOLUME 9.7 fl (7.4-10.4); MONOCYTE # 1.1 10^3/ul (0.3-0.9); MONOCYTES % 9.3 % (0.0-11.0); NEUTROPHIL # 7.1 10^3/ul (1.6-7.5); NEUTROPHILS % 61.7 % (39.0-77.0); PLATELET COUNT 334 10^3/UL (140-415); RED BLOOD COUNT 3.89 10^6/ul (4.70-6.10); RED CELL DISTRIBUTION WIDTH 11.9 % (11.5-14.5)
[2019-06-06 05:16] LABS: WHITE BLOOD COUNT 11.5 10^3/ul (4.8-10.8)
[2019-06-06 06:15] LABS: ANION GAP 10 (5-13); BLOOD UREA NITROGEN 26 mg/dl (7-20); CALCIUM 10.1 mg/dl (8.4-10.2); CARBON DIOXIDE 23 mmol/L (21-31); CHLORIDE 103 mmol/L (97-110); CREATININE 1.17 mg/dl (0.61-1.24); Estimated GFR > 60 mL/min (>60); GLUCOSE 146 mg/dl (70-220); SODIUM 136 mmol/L (135-144)
[2019-06-06] MEDS: metFORMIN 500 MG TAB PO (07:56)
[2019-06-06] MEDS: INSULIN ASPART [NOVOLOG] 3 ML PEN SC (08:10)
[2019-06-06] MEDS: ASPIRIN 325 MG TAB PO (09:03)
[2019-06-06] MEDS: TAMSULOSIN (SR) 0.4 MG CAP PO (09:03)
[2019-06-06] MEDS: DOCUSATE SODIUM 250 MG CAP PO (09:03)
[2019-06-06] MEDS: METOPROLOL 25 MG TAB PO (09:03)
[2019-06-06] MEDS: FAMOTIDINE 20 MG TAB PO (09:03)
[2019-06-06] MEDS: LOSARTAN 25 MG TAB PO (09:04)
[2019-06-06] MEDS: INSULIN GLARGINE [LANTus] (100 UNITS/ML) SYG SC (09:11)
[2019-06-06] MEDS: ENOXAPARIN 40 MG/0.4 ML SYG SC (09:11)
== END 2019-06-06 13:47 | disposition home or self-care (01) | DRG 233 ==
LOC: 6WM 22:21 → E/R 20:41 → 6WM 05-31 18:47 → ICU 05-30 10:07
PROC: 02100Z9 Bypass Coronary Artery, One Artery from Left Internal Mammary, Open Approach (ICD-10-PCS; principal; 2019-05-28 14:08)
PROC: B211YZZ Fluoroscopy of Multiple Coronary Arteries using Other Contrast (ICD-10-PCS; 2019-05-28 14:08)
PROC: 021109W Bypass Coronary Artery, Two Arteries from Aorta with Autologous Venous Tissue, Open Approach (ICD-10-PCS; 2019-05-28 14:08)
PROC: 06BP4ZZ Excision of Right Saphenous Vein, Percutaneous Endoscopic Approach (ICD-10-PCS; 2019-05-28 14:08)
PROC: 0T9B70Z Drainage of Bladder with Drainage Device, Via Natural or Artificial Opening (ICD-10-PCS; 2019-05-28 14:08)
PROC: 4A133R1 Monitoring of Arterial Saturation, Peripheral, Percutaneous Approach (ICD-10-PCS; 2019-05-28 14:08)
DX: I25.110 Atherosclerotic heart disease of native coronary artery with unstable angina pectoris (principal); J95.821 Acute postprocedural respiratory failure; N17.9 Acute kidney failure, unspecified; T81.10XA Postprocedural shock unspecified, initial encounter; I10 Essential (primary) hypertension; E11.40 Type 2 diabetes mellitus with diabetic neuropathy, unspecified; E78.5 Hyperlipidemia, unspecified; N40.1 Benign prostatic hyperplasia with lower urinary tract symptoms; R33.8 Other retention of urine; R35.1 Nocturia; I25.2 Old myocardial infarction; J44.9 Chronic obstructive pulmonary disease, unspecified; N31.9 Neuromuscular dysfunction of bladder, unspecified; E83.42 Hypomagnesemia; Z82.49 Family history of ischemic heart disease and other diseases of the circulatory system
CPT/HCPCS: 36415; 36592; 36600; 70360; 71045; 75571-59; 75574; 76775; 80048; 80053; 80061; 80069; 81001; 81003; 82550; 82553; 82803; 82962; 83036; 83735; 84100; 84484; 85014; 85025; 85610; 85730; 86850; 86900; 86901; 86920; 87081; 87086; 93005; 93306; 93312; 93325; 93454; 93880; 94002; 97110; 97116; 97162; 97530; 99285-25; G0378